=== PATIENT | male | born 1960 | race African-American/Black ===

== ENCOUNTER 2018-07-07 07:18 | Emergency (ER) | payer MEDICARE, MEDICAID | END 2018-07-07 07:49 | disposition home or self-care (01) | LOC: ERS 07:18 | DX: K02.9 Dental caries, unspecified (principal); M25.551 Pain in right hip; I25.10 Atherosclerotic heart disease of native coronary artery without angina pectoris; E78.5 Hyperlipidemia, unspecified; I11.0 Hypertensive heart disease with heart failure; I50.9 Heart failure, unspecified; Z87.891 Personal history of nicotine dependence; W19.XXXA Unspecified fall, initial encounter | CPT/HCPCS: 99282 ==

== ENCOUNTER 2018-10-12 09:19 | Emergency (ER) | payer MEDICARE, MEDICAID | END 2018-10-12 11:16 | disposition left against medical advice (07) | LOC: ERS 09:19 | DX: K04.01 Reversible pulpitis (principal); M25.511 Pain in right shoulder; E78.5 Hyperlipidemia, unspecified; E78.00 Pure hypercholesterolemia, unspecified; I11.0 Hypertensive heart disease with heart failure; I50.9 Heart failure, unspecified; Z87.891 Personal history of nicotine dependence | CPT/HCPCS: 93005 ==

== ENCOUNTER 2019-08-14 09:00 | Emergency (ER) | payer MEDICARE, MEDICAID | END 2019-08-14 09:45 | disposition home or self-care (01) | LOC: ERS 09:00 | DX: N48.1 Balanitis (principal); I25.10 Atherosclerotic heart disease of native coronary artery without angina pectoris; I50.9 Heart failure, unspecified; I11.0 Hypertensive heart disease with heart failure; E78.5 Hyperlipidemia, unspecified; E78.00 Pure hypercholesterolemia, unspecified; Z87.891 Personal history of nicotine dependence | CPT/HCPCS: 96360; 96361 ==

== ENCOUNTER 2019-11-30 10:50 | Emergency (ER) | payer MEDICARE, OTHER ==
[2019-11-30] MEDS ORDERED: Ibuprofen 200 MG TAB ONE (12:12)
== END 2019-11-30 12:17 | disposition home or self-care (01) ==
LOC: ERS 10:50
DX: M25.551 Pain in right hip (principal); I11.0 Hypertensive heart disease with heart failure; I50.9 Heart failure, unspecified; E78.5 Hyperlipidemia, unspecified; Z87.891 Personal history of nicotine dependence; Z79.899 Other long term (current) drug therapy
CPT/HCPCS: 99283

== ENCOUNTER 2019-12-15 11:32 | Emergency (ER) | payer MEDICARE, OTHER ==
--- NOTE | 2019-12-15 12:06 | RAD ---
EXAM: 3 views of the right hand COMPARISON: None HISTORY: Hand pain FINDINGS: 3 views of the hand shows no evidence of acute fracture or dislocation. No degenerative ashok nges are seen. Mild diffuse soft tissue swelling is present. IMPRESSION: Unremarkable exam.
[2019-12-15 12:27] LABS: #Basophils 0.1 thou/uL (0.0-0.2); #Lymphocytes 2.1 thou/uL (1.20-3.40); #Monocytes 0.4 thou/uL (0.11-0.59); #Neutrophils 5.6 thou/uL (1.40-6.50); %Basophils 0.8 % (0.0-1.0); %Eosinophils 0.5 % (0.0-10.0); %Lymphocytes 25.4 % (21.0-51.0); %Monocytes 4.8 % (0.0-10.0); %Neutrophils 68.5 % (42.0-75.0); Hemoglobin 12.1 g/dL (14.0-18.0); Mean Corpuscular Hemoglobin 29.2 pg (27.0-31.0); Mean Corpuscular Volume 85.9 fL (78.0-98.0); Mean Platelet Volume 7.2 fL (7.4-10.4); Platelet Count 319 thou/uL (130-400); RBC Distribution Width 12.6 % (11.5-14.5); Red Blood Cell (RBC) Count 4.15 mill/uL (4.70-6.10); White Blood Cell (WBC) Count 8.1 thou/uL (4.8-10.8)
[2019-12-15 12:53] LABS: ALT (SGPT) 15 U/L (8-55); AST (SGOT) 16 U/L (5-34); Albumin 4.6 g/dL (3.5-5.0); Alkaline Phosphatase 72 U/L (40-110); Anion Gap 16 mmol/L (10-20); BUN (Urea Nitrogen) 11 mg/dL (8.4-25.7); Bilirubin, Total 0.3 mg/dL (0.2-1.2); Calc. Creatinine Clearance 0 mL/min (70-130); Calcium 9.8 mg/dL (7.8-10.44); Carbon Dioxide 23 mmol/L (22-29); Chloride 106 mmol/L (98-107); Estimated GFR-MDRD 68; Globulin 3.3 g/dL (2.4-3.5); Glucose 105 mg/dL (70-105); Potassium 3.8 mmol/L (3.5-5.1); Protein, Total 7.9 g/dL (6.0-8.3); Sodium 141 mmol/L (136-145)
[2019-12-15] MEDS ORDERED: Acetaminophen 500 MG TAB ONE (13:59)
== END 2019-12-15 14:30 | disposition left against medical advice (07) ==
LOC: ERS 11:32
DX: M65.841 Other synovitis and tenosynovitis, right hand (principal); L03.011 Cellulitis of right finger; E78.5 Hyperlipidemia, unspecified; E78.00 Pure hypercholesterolemia, unspecified; I11.0 Hypertensive heart disease with heart failure; I50.9 Heart failure, unspecified; I25.10 Atherosclerotic heart disease of native coronary artery without angina pectoris; Z87.891 Personal history of nicotine dependence; Z79.899 Other long term (current) drug therapy
CPT/HCPCS: 36415; 80053; 85025; 85652; 86140

== ENCOUNTER 2020-01-03 07:41 | Emergency (ER) | payer MEDICARE, OTHER ==
--- NOTE | 2020-01-03 08:30 | RAD ---
Radiograph right first digit 3 views: 01/03/2020 HISTORY: 59-year-old male with cellulitis and pain of right thumb FINDINGS: No fracture or dislocation. 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 No permeative l esion or periostitis. Nonspecific lucency at nail bed. IMPRESSION: 1. No destructive osseous lesion identified. 2. 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
== END 2020-01-03 09:15 | disposition home or self-care (01) ==
LOC: ERS 07:41
DX: L03.012 Cellulitis of left finger (principal); I25.10 Atherosclerotic heart disease of native coronary artery without angina pectoris; I11.0 Hypertensive heart disease with heart failure; I50.9 Heart failure, unspecified; E78.5 Hyperlipidemia, unspecified; E78.00 Pure hypercholesterolemia, unspecified; Z87.891 Personal history of nicotine dependence; Z79.899 Other long term (current) drug therapy
CPT/HCPCS: 29125

== ENCOUNTER 2020-01-23 09:09 | Emergency (ER) | payer MEDICARE, OTHER ==
[2020-01-23] MEDS ORDERED: Ketorolac Tromethamine 30 MG/ML VIAL ONE (09:56)
== END 2020-01-23 10:11 | disposition home or self-care (01) ==
LOC: ERS 09:09
DX: G62.9 Polyneuropathy, unspecified (principal); I25.10 Atherosclerotic heart disease of native coronary artery without angina pectoris; I11.0 Hypertensive heart disease with heart failure; I50.9 Heart failure, unspecified; E78.5 Hyperlipidemia, unspecified; E78.00 Pure hypercholesterolemia, unspecified; Z87.891 Personal history of nicotine dependence; Z79.899 Other long term (current) drug therapy
CPT/HCPCS: 96372; 99283; J1885